=== PATIENT | female | born 1965 | race Caucasian/White ===

== ENCOUNTER 2016-07-03 10:42 | Emergency (ER) | payer MEDICAID ==
[~2016-07-03] VITALS: Wt 80.0 kg
[~2016-07-03 10:42] MED LIST: DIPH25CA6; IBUP-1542 PO; KENC1 TOP; TRAM50TA2 PO
[2016-07-03] MEDS ORDERED: KETOROLAC 60 MG INJ IM STA (11:27)
[2016-07-03 12:42] LABS: URINE BLOOD (Dip) POC Trace-intact (NEGATIVE)
[2016-07-03] MEDS ORDERED: IBUP-1542 PO (12:47)
[2016-07-03] MEDS ORDERED: FIORICET PO (12:47)
--- NOTE | 2016-07-03 12:50 | ERD ---
ER Documentation Chief Complaint Date/Time DATE: 07/03/16 TIME: 12:48 Chief Complaint HEADACHE FOR 3 DAYS NON TRAUMATIC, NO NAUSEA NO VOMITING HPI This 51-year-old female presents with a bitemporal and frontal headache for last 3 days. There is no history of vomiting or diarrhea. She may have had some chills and cough. There is no history of abdominal pain, urinary complaints, neck stiffness, neurologic deficit or weakness per ROS All systems reviewed and are negative except as per history of present illness. Medications Home Meds Active Scripts Acetamin/Butalbital/Caffeine* (Fioricet*) [id number] Tab, 1 TAB PO Q4H Y for PAIN LEVEL 1-5, #10 TAB Prov:BURT PARSONS MD 07/03/16 Ibuprofen* (Motrin*) 600 Mg Tab, 600 MG PO Q6H Y for PAIN, #15 TAB Prov:BURT PARSONS MD 07/03/16 Triamcinolone Acetonide* (Kenalog*) 0.1%-15GM Cr, 1 APPLIC TOP BID, #1 TUB Prov:JAYESH PUENTES PA-C 06/12/15 Ibuprofen* (Motrin*) 600 Mg Tab, 600 MG PO Q6H Y for PAIN, #20 TAB Prov:BURT PARSONS MD 04/02/15 Tramadol HCl (Tramadol HCl) 50 Mg Tab, 50 MG PO Q6H Y for PAIN, #14 TAB Prov:BURT PARSONS MD 04/02/15 Reported Medications Diphenhydramine Hcl (Benadryl) 25 Mg Cap 06/19/10 Allergies Allergies: Coded Allergies: Penicillins (Verified Allergy, Mild, 06/12/15) PMhx/Soc Medical and Surgical Hx: pt denies Medical Hx, pt denies Surgical Hx History of Surgery: No Anesthesia Reaction: No Hx Neurological Disorder: No Hx Respiratory Disorders: No Hx Cardiac Disorders: No Hx Psychiatric Problems: No Hx Miscellaneous Medical Probl: No Hx Alcohol Use: No Hx Substance Use: No Hx Tobacco Use: No Physical Exam Vitals Vital Signs Date Time Temp Pulse Resp B/P Pulse Ox O2 Delivery O2 Flow Rate FiO2 07/03/16 10:52 97.3 72 20 152/68 99 Physical Exam Const: [] Alert, [id number] per Head: Atraumatic Eyes: Normal Conjunctiva. Eyes are PERRLA and extraocular movements intact. ENT: Normal External Ears, Nose and Mouth.. There is some reproducible tenderness in the bitemporal area and base of the neck. Neck: Full range of motion..~ No meningismus. Resp: Clear to auscultation bilaterally Cardio: Regular rate and rhythm, no murmurs Abd: Soft, non tender, non distended. Normal bowel sounds Skin: No petechiae or rashes Back: No midline or flank tenderness Ext: No cyanosis, or edema Neur: Awake and alert Psych: Normal Mood and Affect Results 24 hrs Laboratory Tests Test 07/03/16 12:44 Bedside Urine Blood Trace-intact Bedside Urine Glucose (UA) Negative Bedside Urine Ketones (LAB) Negative Bedside Urine Leukocyte Esterase (L Negative Bedside Urine Nitrite (LAB) Negative Bedside Urine Protein (LAB) Negative Bedside Urine pH (LAB) 6.0 Current Medications Medications (Trade) Dose Ordered Sig/Veronica Route PRN Reason Start Time Stop Time Status Last Admin Dose Admin Ketorolac Tromethamine (Toradol) 60 mg ONCE STAT IM 07/03/16 11:27 07/03/16 11:30 DC 07/03/16 11:41 Procedures/MDM Patient was given Toradol 60 mg IM. Urine negative for leukocytes, nitrites, glucose. There is trace hemoglobin. HCG is negative. Patient was stable throughout the course. Patient presents with signs and symptoms of likely tension headache given a bitemporal reproducible nature. Signs or symptoms do not suggest neurologic deficit, meningitis, masses fact. She will be discharged home with a prescription of ibuprofen and fourchette and further observation. The patient was stable with no new complaints during the ER course. Clinically, there is no current evidence to suggest meningitis, sepsis, acute abdomen, pneumonia, acute coronary syndrome, pulmonary embolism, or any other emergent condition appearing to require further evaluation or hospitalization. The patient should certainly return for any new or worsening symptoms per the aftercare instructions. They should otherwise follow-up with her primary care doctor for reevaluation this week. Departure Diagnosis: Primary Impression: Headache Headache type: tension-type Headache chronicity pattern: acute headache Intractability: not intractable Qualified Code: G44.209 - Acute non intractable tension-type headache Condition: Stable Patient Instructions: Self-Care for Headaches Additional Instructions: Cheque otro vez con lo doctor primario en el proximo [place] or regresa para mas o nueva simptomas. BURT PARSONS MD Jul 03, 2016 12:50
== END 2016-07-03 13:29 | disposition home or self-care (01) ==
LOC: FTE 10:42
DX: G44.209 Tension-type headache, unspecified, not intractable (principal)
CPT/HCPCS: 81003; 96372; J1885; Z7502

== ENCOUNTER 2016-07-18 05:41 | Emergency (ER) | payer MEDICAID ==
[~2016-07-18] VITALS: Ht 167.6 cm; Wt 81.0 kg
[~2016-07-18 05:41] MED LIST changes: +FIORICET PO
[2016-07-18 05:49] VITALS: Ht 167.6 cm; Wt 81.0 kg
[2016-07-18] MEDS ORDERED: KETOROLAC 30 MG INJ IM STA (06:23)
[2016-07-18] MEDS ORDERED: ONDANSETRON (ODT) 4 MG TAB ODT STA (06:23)
[2016-07-18] MEDS ORDERED: FAMOTIDINE 20 MG TAB PO ONE (06:30)
--- NOTE | 2016-07-18 06:34 | ERD ---
ER Documentation Chief Complaint Date/Time DATE: 07/18/16 TIME: 06:32 Chief Complaint vomiting,denies abd pain HPI This is a 51-year-old female who presents to the emergency department today complaining of headache and nausea that started this morning. Patient states that she has not had any vomiting yet. States that she was here a couple of weeks ago for a migraine. Denies any fevers or chills or diarrhea ROS All systems reviewed and are negative except as per history of present illness. Medications Home Meds Active Scripts Naproxen* (Naprosyn*) 500 Mg Tablet, 500 MG PO BID Y for PAIN AND/OR INFLAMMATION, #30 TAB Prov:JENNA COLLINS PA-C 07/18/16 Ondansetron Hcl* (Zofran*) 4 Mg Tablet, 4 MG PO Q6H for NAUSEA AND/OR VOMITING, #30 TAB Prov:JENNA COLLINS PA-C 07/18/16 Nitrofurantoin Monohyd Macrocr* (Macrobid*) 100 Mg Capsr, 100 MG PO BID for 7 Days, CAP Prov:JENNA COLLINS PA-C 07/18/16 Acetamin/Butalbital/Caffeine* (Fioricet*) [id number] Tab, 1 TAB PO Q4H Y for PAIN LEVEL 1-5, #10 TAB Prov:BURT PARSONS MD 07/03/16 Ibuprofen* (Motrin*) 600 Mg Tab, 600 MG PO Q6H Y for PAIN, #15 TAB Prov:BURT PARSONS MD 07/03/16 Triamcinolone Acetonide* (Kenalog*) 0.1%-15GM Cr, 1 APPLIC TOP BID, #1 TUB Prov:JAYESH PUENTES PA-C 06/12/15 Ibuprofen* (Motrin*) 600 Mg Tab, 600 MG PO Q6H Y for PAIN, #20 TAB Prov:BURT PARSONS MD 04/02/15 Tramadol HCl (Tramadol HCl) 50 Mg Tab, 50 MG PO Q6H Y for PAIN, #14 TAB Prov:BURT PARSONS MD 04/02/15 Reported Medications Diphenhydramine Hcl (Benadryl) 25 Mg Cap 06/19/10 Allergies Allergies: Coded Allergies: Penicillins (Verified Allergy, Mild, 06/12/15) PMhx/Soc History of Surgery: No Anesthesia Reaction: No Hx Neurological Disorder: No Hx Respiratory Disorders: No Hx Cardiac Disorders: No Hx Psychiatric Problems: No Hx Miscellaneous Medical Probl: Yes (MIGRAINES (2017 DX).) Hx Alcohol Use: No Hx Substance Use: No Hx Tobacco Use: No Smoking Status: Never smoker Physical Exam Vitals Vital Signs Date Time Temp Pulse Resp B/P Pulse Ox O2 Delivery O2 Flow Rate FiO2 07/18/16 05:49 98.4 89 18 131/88 97 Physical Exam Const: No acute distress. Head: Atraumatic Eyes: Normal Conjunctiva. PERRLA. EOM intact. ENT: Normal External Ears, Nose and Mouth. Neck: Full range of motion..~ No meningismus. Resp: Clear to auscultation bilaterally Cardio: Regular rate and rhythm, no murmurs Abd: Soft, mild epigastric tenderness non distended. Normal bowel sounds. No right upper quadrant pain. No right lower quadrant pain. No tenderness at McBurney's. Skin: No petechiae or rashes Neur: Awake and alert Psych: Normal Mood and Affect Results 24 hrs Laboratory Tests Test 07/18/16 07:01 Bedside Urine Blood Trace-lysed Bedside Urine Glucose (UA) Negative Bedside Urine Ketones (LAB) Negative Bedside Urine Leukocyte Esterase (L 1+ Bedside Urine Nitrite (LAB) Negative Bedside Urine Protein (LAB) Negative Bedside Urine pH (LAB) 7.0 Current Medications Medications (Trade) Dose Ordered Sig/Veronica Route PRN Reason Start Time Stop Time Status Last Admin Dose Admin Ketorolac Tromethamine (Toradol) 30 mg ONCE STAT IM 07/18/16 06:23 07/18/16 06:24 DC 07/18/16 06:45 Ondansetron HCl (Zofran Odt) 4 mg ONCE STAT ODT 07/18/16 06:23 07/18/16 06:24 DC 07/18/16 06:44 Famotidine (Pepcid) 20 mg ONCE ONCE PO 07/18/16 06:30 07/18/16 06:31 DC 07/18/16 06:44 Procedures/MDM This a 51-year-old female who presents to the emergency department today complaining of headache and nausea that started this morning. Patient describes her headache in the frontal and bitemporal area. She has not had any vomiting but feels nauseated. Patient does have some mild epigastric pain on physical exam however she has no right upper quadrant tenderness and no right lower quadrant tenderness. Patient was seen here in the emergency department approximately 2 weeks ago for similar complaints. I do not feel the patient requires laboratory workup or imaging at this time. I did obtain a UA UA shows 1+ leukocyte esterase. Negative nitrites. I will give the patient a prescription for Macrobid to treat a urinary tract infection. Patient symptoms at this time most consistent with headache or migraine given that it is by 10 portable. She has no neuro deficits. Low suspicion for meningitis, abscess, mass effect. Her headache and nausea may also be secondary to urinary tract infection. I have explained this to the patient. Low suspicion for pyelonephritis or nephrolithiasis. Patient had no right upper quadrant pain and no left lower quadrant pain and no right lower quadrant pain and I have low suspicion for acute surgical abdomen. Patient was given Toradol and Zofran here in the emergency department and symptoms improved. Patient reported feeling much better and was asking to leave. Patient will be sent home with a prescription for Naprosyn, Zofran and Macrobid. At this time the patient is stable for discharge and outpatient management. Patient should follow up with their PCP in the next 1-2 days. They may return to the emergency department sooner for any persistent or worsening of symptoms. Patient understood and agreed with the plan. . Departure Diagnosis: Primary Impression: Headache Headache type: unspecified Headache chronicity pattern: episodic headache Intractability: not intractable Qualified Code: R51 - Nonintractable episodic headache, unspecified headache type Additional Impression: UTI (urinary tract infection) Urinary tract infection type: site unspecified Hematuria presence: without hematuria Qualified Code: N39.0 - Urinary tract infection without hematuria, site unspecified Condition: JENNA Darby PA-C Jul 18, 2016 06:34
[2016-07-18 06:59] LABS: URINE BLOOD (Dip) POC Trace-lysed (NEGATIVE)
[2016-07-18] MEDS ORDERED: NAPR-260 PO (07:02)
[2016-07-18] MEDS ORDERED: ONDA4TAB8 PO (07:02)
[2016-07-18] MEDS ORDERED: NITR-58 PO (07:02)
== END 2016-07-18 07:08 | disposition home or self-care (01) ==
LOC: FTE 05:41
DX: R51 Headache (principal); N39.0 Urinary tract infection, site not specified; R11.0 Nausea
CPT/HCPCS: 81003; 96372; J1885; Z7502; Z7610

== ENCOUNTER 2017-05-06 12:27 | Emergency (ER) | payer MEDICAID ==
[~2017-05-06] VITALS: Wt 77.5 kg
[~2017-05-06 12:27] MED LIST changes: -KENC1 TOP; +NAPR-260 PO; +NITR-58 PO; +ONDA4TAB8 PO; +TRIA15CR55 TOP
[2017-05-06] MEDS ORDERED: ONDANSETRON (ODT) 4 MG TAB ODT STA (14:33)
[2017-05-06 14:51] LABS: URINE BLOOD (Dip) POC Negative (NEGATIVE)
[2017-05-06] MEDS ORDERED: MECLIZINE 12.5 MG TAB PO ONE (15:00)
--- NOTE | 2017-05-06 16:07 | RADRPT ---
PROCEDURE: CT Head without contrast. CLINICAL INDICATION: Dizziness and headaches TECHNIQUE: The study was performed utilizing a GE 64-slice multidetector CT scanner. Direct spiral axial CT images of the brain were obtained from the vertex to the skull base without contrast. Cor onal and sagittal reformat images are provided. The CTDI vol is 44.93 mGy and the DLP is 630.2 mGy- cm. The images were reviewed on a PACS workstation. One or more of the following dose reduction techniques were used: Automated exposure control. Adjustment of the mA and/or kV according to patient size. Use of iterative reconstruction technique. COMPARISON: No prior studies are available for comparison. FINDINGS: The ventricles and cortical sulci are within normal limits. The glaser-white matter differentiation i s maintained. No intra or extra-axial fluid collection or mass effect or shift in the midline struc tures is seen. The visualized paranasal sinuses, mastoid air cells, orbits, and calvarium are unrem arkable. IMPRESSION: No acute intracranial pathology. RPTAT: HPNM Physician Brenda Date Time Electronically viewed and signed by Physician Brenda on 05/06/2017 16:06 /
[2017-05-06] MEDS ORDERED: MECL-77 PO (16:17)
--- NOTE | 2017-05-06 16:21 | ERD ---
ER Documentation Chief Complaint Chief Complaint DIZZINESS, HEADACHE, ONSET THIS AM, NO CHEST PAIN, NO WEAKNESS HPI This 52-year-old female presents with spinning type dizziness starting this morning. Is worse when she turns her head. She denies weakness, deficits. She does have a diffuse headache as well. She denies any recent illnesses, bowel bladder incontinence, additional symptoms. She denies any history of trauma. ROS All systems reviewed and are negative except as per history of present illness. Medications Home Meds Active Scripts Meclizine Hcl* (Meclizine Hcl*) 25 Mg Tablet, 25 MG PO Q8H Y for DIZZINESS, #20 TAB Prov:BURT PARSONS MD 05/06/17 Naproxen* (Naprosyn*) 500 Mg Tablet, 500 MG PO BID Y for PAIN AND/OR INFLAMMATION, #30 TAB Prov:JENNA COLLINS PA-C 07/18/16 Ondansetron Hcl* (Zofran*) 4 Mg Tablet, 4 MG PO Q6H for NAUSEA AND/OR VOMITING, #30 TAB Prov:JENNA COLLINS PA-C 07/18/16 Nitrofurantoin Monohyd Macrocr* (Macrobid*) 100 Mg Capsr, 100 MG PO BID for 7 Days, CAP Prov:JENNA COLLINS PA-C 07/18/16 Acetamin/Butalbital/Caffeine* (Fioricet*) [id number] Tab, 1 TAB PO Q4H Y for PAIN LEVEL 1-5, #10 TAB Prov:BURT PARSONS MD 07/03/16 Ibuprofen* (Motrin*) 600 Mg Tab, 600 MG PO Q6H Y for PAIN, #15 TAB Prov:BURT PARSONS MD 07/03/16 Triamcinolone Acetonide* (Kenalog*) 0.1%-15GM Cr, 1 APPLIC TOP BID, #1 TUB Prov:JAYESH PUENTES PA-C 06/12/15 Ibuprofen* (Motrin*) 600 Mg Tab, 600 MG PO Q6H Y for PAIN, #20 TAB Prov:BURT PARSONS MD 04/02/15 Tramadol HCl (Tramadol HCl) 50 Mg Tab, 50 MG PO Q6H Y for PAIN, #14 TAB Prov:BURT PARSONS MD 04/02/15 Reported Medications Diphenhydramine Hcl (Benadryl) 25 Mg Cap 06/19/10 Allergies Allergies: Coded Allergies: Penicillins (Verified Allergy, Mild, 06/12/15) PMhx/Soc History of Surgery: No Anesthesia Reaction: No Hx Neurological Disorder: No Hx Respiratory Disorders: No Hx Cardiac Disorders: No Hx Psychiatric Problems: No Hx Miscellaneous Medical Probl: Yes (MIGRAINES (2017 DX).) Hx Alcohol Use: No Hx Substance Use: No Hx Tobacco Use: No Smoking Status: Never smoker Physical Exam Vitals Vital Signs Date Time Temp Pulse Resp B/P Pulse Ox O2 Delivery O2 Flow Rate FiO2 05/06/17 12:32 98.3 89 17 171/94 95 Physical Exam Const: [], [id number]. Head: Atraumatic Eyes: Normal Conjunctiva. Eyes PERRLA and extraocular movements intact. ENT: Normal External Ears, Nose and Mouth. Neck: Full range of motion..~ No meningismus. Resp: Clear to auscultation bilaterally Cardio: Regular rate and rhythm, no murmurs Abd: Soft, non tender, non distended. Normal bowel sounds Skin: No petechiae or rashes Back: No midline or flank tenderness Ext: No cyanosis, or edema Neur: Awake and alert and reproducible vertigo to the left. No cerebellar signs. No appreciable focal neurologic deficits. Psych: Normal Mood and Affect Results 24 hrs Laboratory Tests Test 05/06/17 14:50 Bedside Urine pH (LAB) 7.0 Bedside Urine Protein (LAB) Negative Bedside Urine Glucose (UA) Negative Bedside Urine Ketones (LAB) Negative Bedside Urine Blood Negative Bedside Urine Nitrite (LAB) Negative Bedside Urine Leukocyte Esterase (L Negative Current Medications Medications (Trade) Dose Ordered Sig/Veronica Route PRN Reason Start Time Stop Time Status Last Admin Dose Admin Ondansetron HCl (Zofran Odt) 8 mg ONCE STAT ODT 05/06/17 14:33 05/06/17 14:34 DC 05/06/17 14:55 Meclizine HCl (Antivert) 25 mg ONCE ONCE PO 05/06/17 15:00 05/06/17 15:01 DC 05/06/17 14:55 Procedures/MDM Urine is negative. CT brain was performed given patient's age and presence of headache. Radiologist read is negative. Patient was given Antivert and Zofran and felt better after observation treatment. Patient presents with reproducible peripheral vertigo without signs of central vertigo, neurologic deficits, signs of sepsis, additional emergent causes of presenting complaints. She will treated with anterior home, primary care follow-up and return precautions. The patient was stable with no new complaints during the ER course. Clinically, there is no current evidence to suggest meningitis, sepsis, acute abdomen, pneumonia, acute coronary syndrome, pulmonary embolism, or any other emergent condition appearing to require further evaluation or hospitalization. The patient should certainly return for any new or worsening symptoms per the aftercare instructions. They should otherwise follow-up with her primary care doctor for reevaluation this week. Departure Diagnosis: Primary Impression: Dizziness Condition: Stable Patient Instructions: Benign Positional Vertigo Additional Instructions: CT scan normal hoy. Cheque otro vez con lo doctor primario en el proximo [place] or regresa para mas o nueva simptomas. BURT PARSONS MD May 06, 2017 16:21
== END 2017-05-06 17:38 | disposition home or self-care (01) ==
LOC: FTE 12:27
DX: R42 Dizziness and giddiness (principal)
CPT/HCPCS: 70450; 81003; Z7502; Z7610